=== PATIENT | female | born 2005 | race Caucasian/White ===

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

== ENCOUNTER → 2024-12-25 08:37 | Outpatient (CLI) | payer OTHER, SELFPAY ==
[2024-12-25 09:54] LABS: Hematocrit 46.3 % (36-46); Hemoglobin 16.2 g/dL (12.0-16.0); Mean Corpuscular HGB Conc 34.9 % (30-36); Mean Corpuscular Hemoglobin 32.1 PG (26-34); Platelet Count 318 X10^3/uL (150-400); Red Blood Cell Count 5.03 X10^6/uL (4.0-5.2); Red Cell Distribution Width 12.5 % (11.6-14.8); White Blood Cell Count 5.9 X10^3/uL (4.5-11.0)
[2024-12-25 10:15] LABS: Alanine Aminotransferase 19 IU/L (<35); Albumin 4.8 g/dL (3.5-5.0); Albumin Globulin Ratio 1.9 (1.0-2.8); Alkaline Phosphatase 62 U/L (38-126); Aspartate Aminotransferase 27 IU/L (14-36); BUN Creatinine Ratio 41.5 (6-22); Bilirubin Total 0.6 mg/dL (0.2-1.3); Blood Urea Nitrogen 22 mg/dL (7-17); Calcium 9.6 mg/dL (8.4-10.2); Carbon Dioxide 26 mmol/L (22-32); Chloride 103 mmol/L (98-107); Cholesterol 180 mg/dL (140-199); Estimated Glomerular Filt Rate > 60 mL/min (>60); Globulin 2.5 g/dL (1.7-4.1); Glucose 97 mg/dL (70-99); HDL Cholesterol 56 mg/dL (40-60); HEMOLYSIS < 15 (0-50); LDL Cholesterol Calculated 106 mg/dL (<100); Potassium 4.3 mmol/L (3.4-5.1); Sodium 137 mmol/L (137-145); Total Protein 7.3 g/dL (6.3-8.2); Triglycerides 88 mg/dL (35-150)
[2024-12-25 10:30] LABS: Follicle Stimulating Hormone 5.69 mIU/mL; Luteinizing Hormone 10.3 mIU/mL
[2024-12-25 10:31] LABS: Prolactin 18.9 ng/mL (3.0-18.6)
[2024-12-25 10:43] LABS: TSH w/ Reflex to FT4 1.05 uIU/mL (0.47-4.68)
[2024-12-25 10:45] LABS: Estradiol, Total 59.4 pg/mL
[2024-12-25 10:46] LABS: Testosterone 66.2 ng/dL (5.71-77.0)
== END ==
PROVIDERS: PCP Registered Nurse Diabetes Educator; Referring Provider Registered Nurse Diabetes Educator; Visit Provider Registered Nurse Diabetes Educator
DX: Z00.00 Encounter for general adult medical examination without abnormal findings (principal); L68.0 Hirsutism
CPT/HCPCS: 36415; 80053; 80061; 82627; 82670; 83001; 83002; 83498; 84146; 84403; 84443; 85027

== ENCOUNTER → 2025-02-08 08:17 | Outpatient (CLI) | payer OTHER, SELFPAY ==
[2025-02-08 08:40] LABS: Add Manual Diff / Slide Review NO; Basophils Absolute Auto 0 /uL (0-100); Basophils Percent Auto 0.6 % (0-2); Eosinophils Absolute Auto 100 /uL (0-450); Eosinophils Percent Auto 1.7 % (2-4); Hematocrit 45.8 % (36-46); Hemoglobin 15.9 g/dL (12.0-16.0); Lymphocytes Absolute Auto 2300 /uL (1100-4500); Lymphocytes Percent Auto 31.1 % (25-40); Mean Corpuscular HGB Conc 34.8 % (30-36); Mean Corpuscular Hemoglobin 32.4 PG (26-34); Monocytes Absolute Auto 800 /uL (0-900); Monocytes Percent Auto 11.2 % (3-14); Neutrophils Absolute Auto 4100 /uL (1500-7000); Neutrophils Percent Auto 55.4 % (50-75); Platelet Count 379 X10^3/uL (150-400); Red Blood Cell Count 4.92 X10^6/uL (4.0-5.2); Red Cell Distribution Width 12.8 % (11.6-14.8); White Blood Cell Count 7.4 X10^3/uL (4.5-11.0)
[2025-02-08 09:30] LABS: HEMOLYSIS < 15 (0-50); Iron 144 ug/dL (37-170)
[2025-02-08 09:41] LABS: Percent Iron Saturation 42 % (15-50); Total Iron Binding Capacity 344 ug/dL (265-497); Transferrin 289 mg/dL (206-381)
[2025-02-08 09:50] LABS: Prolactin 28.1 ng/mL (3.0-18.6)
[2025-02-08 10:08] LABS: Ferritin 16 ng/mL (6-137)
== END ==
PROVIDERS: PCP Registered Nurse Diabetes Educator; Referring Provider Registered Nurse Diabetes Educator; Visit Provider Registered Nurse Diabetes Educator
DX: E22.1 Hyperprolactinemia (principal); R71.8 Other abnormality of red blood cells; R79.89 Other specified abnormal findings of blood chemistry
CPT/HCPCS: 36415; 82728; 83540; 83550; 84146; 85025